=== PATIENT | male | born 1965 | race Two or more races ===

== ENCOUNTER 2021-09-23 04:19 | Emergency (ER) | payer MEDICARE, OTHER ==
[~2021-09-23] VITALS: Ht 162.6 cm; Wt 81.6 kg
[2021-09-23 05:00] LABS: HEMATOCRIT 44.1 % (36.7-47.1); MEAN CORPUSCULAR HEMOGLOBIN 28.3 uug (23.8-33.4); MEAN CORPUSCULAR VOLUME 86.3 fL (73.0-96.2); PLATELET COUNT (AUTO) 303 K/uL (152-348)
[2021-09-23 05:01] LABS: *BILIRUBIN,URIN 1+ (NEGATIVE); *BLOOD, URINE NEGATIVE (NEGATIVE); *COLOR,URINE YELLOW (YELLOW); *KETONES,URINE 1+ (NEGATIVE); *UROBILINOGEN,URINE 0.2 E.U./dl (NORMAL); LEUKOCYTE ESTERASE ,URINE NEGATIVE (NEGATIVE); NITRITE, URINE NEGATIVE (NEGATIVE); PH,URINE 5.5 (5.0-8.0); UGLUCOSE NEGATIVE (NEGATIVE)
[2021-09-23 05:08] LABS: CREATININE 1.1 mg/dL (0.6-1.3); POTASSIUM 3.6 mmol/L (3.5-5.1)
[2021-09-23 05:13] LABS: BILIRUBIN,DIRECT 0.1 mg/dL (0.0-0.2); BILIRUBIN,TOTAL 0.5 mg/dL (0.2-1.0); TOTAL PROTEIN, SERUM 7.8 g/dL (6.4-8.2)
[2021-09-23 05:19] LABS: *CLARITY,URINE HAZY (CLEAR)
[2021-09-23 05:27] LABS: BACTERIA,URINE NONE SEEN /HPF (NONE SEEN); MUCUS,URINE MANY /LPF (0-FEW); RBC,URINE 0-3 /HPF (0-3); SQUAMOUS EPITHELIAL CELL,UR FEW /HPF (NONE SEEN); WBC,URINE 0-3 /HPF (0-3)
--- NOTE | 2021-09-23 07:00 | NUR ---
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
--- NOTE | 2021-09-23 08:05 | NUR ---
Pt pending disposition Pt is dressed and standing in room. able to communicate via pen and paper. [email or web address] kept comfortable, reassured and advocated for pt
[2021-09-23] MEDS ORDERED: BISA-79 PO (08:35)
--- NOTE | 2021-09-23 08:42 | NUR ---
Patient discharged to home in stable condition. Written and verbal after care instructions given. Patient verbalizes understanding of instructions. Stressed follow up or return to ER for worsening s/s.
[2021-09-23 08:44] VITALS: BP 127/68
== END 2021-09-23 08:44 | disposition home or self-care (01) ==
LOC: ER 04:24
DX: K59.00 Constipation, unspecified (principal); H91.90 Unspecified hearing loss, unspecified ear; K42.9 Umbilical hernia without obstruction or gangrene; K44.9 Diaphragmatic hernia without obstruction or gangrene
CPT/HCPCS: 36415; 74021; 83690; 85025; A4663

== ENCOUNTER 2022-05-03 17:28 | Emergency (ER) | payer MEDICARE, OTHER ==
[~2022-05-03] VITALS: Ht 162.6 cm; Wt 81.6 kg
[~2022-05-03 17:28] MED LIST: BISA-79 PO
[2022-05-03] MEDS ORDERED: KETOROLAC TROMETHAMINE 60 MG INJ IM ONE ×2 (19:15→20:30)
--- NOTE | 2022-05-03 19:50 | NUR ---
Observed patient walk from bed to restroom with a steady gait.
--- NOTE | 2022-05-03 19:52 | NUR ---
Patient going down for CT scan.
--- NOTE | 2022-05-03 20:02 | NUR ---
Patient has returned from CT scan.
--- NOTE | 2022-05-03 20:50 | NUR ---
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
--- NOTE | 2022-05-03 20:50 | NUR ---
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
[2022-05-03] MEDS ORDERED: NAPR-1009 PO (20:59)
--- NOTE | 2022-05-03 21:04 | NUR ---
Patient discharged to home in stable condition with all belongings. Written and verbal after care instructions given. Patient acknowledges understanding of instructions by ASL. Stressed follow up or return to ER for worsening s/s. Patient walked with steady gait.
[2022-05-03 21:06] VITALS: BP 119/60
== END 2022-05-03 21:08 | disposition home or self-care (01) ==
LOC: ER 17:28
DX: S23.8XXA Sprain of other specified parts of thorax, initial encounter (principal); W18.30XA Fall on same level, unspecified, initial encounter; Y93.H9 Activity, other involving exterior property and land maintenance, building and construction; Y92.414 Local residential or business street as the place of occurrence of the external cause; H91.3 Deaf nonspeaking, not elsewhere classified
CPT/HCPCS: 99284; 71250; 93005; 71101; 96372; J1885; A4663

== ENCOUNTER 2022-05-29 20:06 | Emergency (ER) | payer MEDICARE, OTHER ==
[~2022-05-29 20:06] MED LIST changes: +NAPR-1009 PO
--- NOTE | 2022-05-30 00:01 | NUR ---
Patient was just called at this time to be triaged due to short staffing and high acuity (3 ICU patient) with a full ER, but patient was not present. PATIENT WAS NOT TRIAGED OR SEEN BY ERMD.
== END 2022-05-30 00:01 | disposition left against medical advice (07) ==
LOC: ER 20:11
DX: Z53.21 Procedure and treatment not carried out due to patient leaving prior to being seen by health care provider (principal)

== ENCOUNTER 2022-06-05 13:52 | Emergency (ER) | payer MEDICARE, OTHER ==
[~2022-06-05] VITALS: Ht 162.6 cm; Wt 80.7 kg
[2022-06-05] MEDS ORDERED: DIAZEPAM 2 MG TABLET PO ONE (14:15)
[2022-06-05] MEDS ORDERED: MORPHINE SULFATE 4 MG/1 ML DISP.SYRIN IV ONE (14:15)
[2022-06-05] MEDS ORDERED: KETOROLAC TROMETHAMINE 15 MG INJ IVP ONE (14:15)
[2022-06-05] MEDS ORDERED: MORPHINE SULFATE 4 MG/1 ML DISP.SYRIN ONE (14:20)
[2022-06-05] MEDS ORDERED: KETOROLAC TROMETHAMINE 15 MG INJ ONE (14:20)
[2022-06-05] MEDS ORDERED: DIAZEPAM 5 MG TABLET ONE (14:20)
--- NOTE | 2022-06-05 15:06 | NUR ---
Patient back from CT.
[2022-06-05] MEDS ORDERED: LIDOCAINE 5% PATCH TD ONE ×2 (15:15→15:16)
[2022-06-05 15:33] LABS: CREATININE 1.1 mg/dL (0.6-1.3); HEMATOCRIT 40.5 % (36.7-47.1); MEAN CORPUSCULAR HEMOGLOBIN 28.7 uug (23.8-33.4); MEAN CORPUSCULAR VOLUME 86.4 fL (73.0-96.2); PLATELET COUNT (AUTO) 293 K/uL (152-348); POTASSIUM 4.4 mmol/L (3.5-5.1)
[2022-06-05] MEDS ORDERED: DIAZ5TAB PO (15:37)
[2022-06-05] MEDS ORDERED: OXYC5CAP18 PO (15:37)
[2022-06-05 15:56] VITALS: BP 139/98
== END 2022-06-05 15:57 | disposition home or self-care (01) ==
LOC: ER 13:52
DX: R07.89 Other chest pain (principal); H91.3 Deaf nonspeaking, not elsewhere classified
CPT/HCPCS: 99285; 96374; 71250; 96375; 80048; 85025; 36415; 93005; J1885; J2270; A4663

== ENCOUNTER 2023-05-20 09:44 | Emergency (ER) | payer MEDICARE, OTHER ==
[~2023-05-20] VITALS: Ht 167.6 cm; Wt 82.6 kg
[~2023-05-20 09:44] MED LIST changes: +DIAZ5TAB PO; +OXYC5CAP18 PO
[2023-05-20] MEDS ORDERED: PRED50TA PO (11:02)
[2023-05-20] MEDS ORDERED: GUAI5SYR4 PO (11:02)
[2023-05-20] MEDS ORDERED: predniSONE 50 MG TABLET ONE (11:07)
[2023-05-20 11:13] VITALS: BP 133/80; TEMP 98; O2SAT 99
[2023-05-20] MEDS ORDERED: predniSONE 50 MG TABLET PO ONE (11:15)
== END 2023-05-20 11:13 | disposition home or self-care (01) ==
LOC: ER 09:44
DX: J45.909 Unspecified asthma, uncomplicated (principal); Z79.899 Other long term (current) drug therapy
CPT/HCPCS: 99283; J7512; A4663

== ENCOUNTER 2024-06-25 12:51 | Emergency (ER) | payer MEDICARE, OTHER ==
[~2024-06-25] VITALS: Ht 167.6 cm; Wt 81.6 kg
[~2024-06-25 12:51] MED LIST changes: +GUAI5SYR4 PO; +PRED50TA PO
[2024-06-25 13:42] LABS: BASOPHILS # (AUTO) 0.1 K/UL (0.0-0.2); EOSINOPHILS # (AUTO) 0.2 K/uL (0.0-0.7); EOSINOPHILS % (AUTO) 1.7 % (0.0-7.0); HEMATOCRIT 38.6 % (36.7-47.1); HEMOGLOBIN 12.8 g/dL (12.5-16.3); LYMPHOCYTES % (AUTO) 21.5 % (20.5-51.5); MEAN CORPUSCULAR HEMOGLOBIN 27.9 uug (23.8-33.4); MEAN CORPUSCULAR HGB CONC 33 g/dL (32.5-36.3); MEAN CORPUSCULAR VOLUME 84.2 fL (73.0-96.2); MONOCYTES # (AUTO) 0.6 K/uL (0.1-1.30); MONOCYTES % (AUTO) 6.8 % (0.0-11.0); NEUTROPHILS # (AUTO) 6.6 K/uL (1.8-8.9); PLATELET COUNT (AUTO) 262 K/uL (152-348); RED BLOOD CELL COUNT(AUTO) 4.58 MIL/uL (4.06-5.63); RED CELL DISTRIBUTION WIDTH 15.3 % (12.1-16.2); WHITE BLOOD COUNT (AUTO) 9.5 K/uL (3.6-10.2)
[2024-06-25 13:46] LABS: DIFFERENTIAL COMMENT 1
[2024-06-25 13:53] LABS: CALCIUM 8.6 mg/dL (8.5-10.1); CARBON DIOXIDE 32 mmol/L (21-32); CHLORIDE 103 mmol/L (98-107); GLUCOSE 143 mg/dL (74-106); POTASSIUM 3.5 mmol/L (3.5-5.1); SODIUM SERUM 142 mmol/L (136-145); UREA NITROGEN, BLOOD 19 mg/dL (7-18)
[2024-06-25] MEDS ORDERED: ACET1TAB23 PO (14:38)
[2024-06-25] MEDS ORDERED: HYDROCODONE/APAP 10-325 MG TABLET ONE (14:50)
[2024-06-25] MEDS: HYDROCODONE/APAP 10-325 MG TABLET PO ONE (14:59)
[2024-06-25 15:04] VITALS: BP 121/81; TEMP 97.1; O2SAT 98
== END 2024-06-25 15:05 | disposition home or self-care (01) ==
LOC: ER 12:51
DX: R07.89 Other chest pain (principal); Z79.52 Long term (current) use of systemic steroids; Z79.899 Other long term (current) drug therapy; Z60.2 Problems related to living alone
CPT/HCPCS: 36415; 71101; 84484; 85025; A4606; A4663